=== PATIENT | male | born 1935 | race Caucasian/White ===

== ENCOUNTER 2017-01-28 09:48 | Emergency (ER) | payer OTHER ==
[~2017-01-28] VITALS: Ht 180.3 cm; Wt 105.2 kg
[2017-01-28] MEDS ORDERED: SODIUM CHLORIDE FLUSH 10ML SYR IVF ONE (11:00)
[2017-01-28 11:23] LABS: HEMATOCRIT 47.9 % (39.2-51.8); HEMOGLOBIN 16.1 g/dL (13.7-18.0); WHITE BLOOD COUNT 8.7 x10^3/uL (3.4-10)
[2017-01-28 11:35] LABS: BLOOD UREA NITROGEN 24 mg/dL (7-18)
[2017-01-28 11:40] LABS: ASPARTATE AMINO TRANSFERASE 13 U/L (15-37)
[2017-01-28 11:42] LABS: IS PT STATUS REG ER OR PRE ER? YES
[2017-01-28] MEDS ORDERED: APIXABAN 5 MG TABLET PO ONE (12:30)
[2017-01-28 12:54] VITALS: BP 123/69
== END 2017-01-28 12:58 | disposition home or self-care (01) ==
LOC: ED 12:52
DX: I48.91 Unspecified atrial fibrillation (principal); Z79.01 Long term (current) use of anticoagulants; R60.0 Localized edema; R73.9 Hyperglycemia, unspecified; I10 Essential (primary) hypertension
CPT/HCPCS: 36415; 71010; 80053; 83735; 83880; 84436; 84443; 84484; 85025; 85610; 85730; 93005; 99285